=== PATIENT | male | born 1975 | race African-American/Black ===

== ENCOUNTER 2022-04-11 15:05 | Outpatient (REF) | payer MEDICAID, SELFPAY ==
[2022-04-11 15:21] LABS: MANUAL DIFF FLAG NO
[2022-04-11 15:40] LABS: Basophils Percent Auto 0.5 % (0-2); Eosinophils Absolute Auto 0.2 X10*3/uL (0.0-0.4); Eosinophils Percent Auto 2.4 % (0-4); Hematocrit 41.2 % (42.0-52.0); Hemoglobin 13.5 g/dl (14.0-18.0); Imm Gran Abs Auto 0.03 X10*3/uL (0.00-0.03); Imm Gran Pct Auto 0.4 % (0.0-0.4); Lymphocytes Absolute Auto 2.3 X10*3/uL (1.2-4.9); Lymphocytes Percent Auto 30.9 % (20-40); Mean Corpuscular HGB Conc 32.8 g/dl (31.0-36.0); Mean Corpuscular Hemoglobin 30.1 pg (27.0-33.0); Mean Corpuscular Volume 91.8 fL (80.0-98.0); Mean Platelet Volume 9.7 fL (9.4-12.4); Monocytes Absolute Auto 0.8 X10*3/uL (0.1-1.2); Monocytes Percent Auto 10.8 % (2-11); Neutrophils Absolute Auto 4.1 x10*3/uL (2.0-8.3); Platelet Count 332 X10*3/uL (160-400); Red Blood Count 4.49 X10*6/uL (4.60-5.80); Red Cell Distribution Width 12.6 % (11.0-16.0); White Blood Count 7.4 X10*3/uL (4.8-10.8)
[2022-04-11 15:52] LABS: Estimated Average Glucose 88 mg/dL; Hemoglobin A1c % 4.7 %
[2022-04-11 16:00] LABS: Alanine Aminotransferase 26 U/L (0-40); Albumin Level 4.4 g/dL (3.5-5.0); Alkaline Phosphatase 52 U/L (39-117); Anion Gap 12 (12-20); Aspartate Amino Transferase 22 U/L (5-37); Bilirubin Total 0.7 mg/dL (0.0-1.0); Blood Urea Nitrogen 10 mg/dL (9-16); Calcium 9.4 mg/dL (8.4-10.2); Carbon Dioxide 26 mmol/L (22-29); Chloride 105 mmol/L (96-108); Estimated Glomerular Filt Rate > 60; Glucose Random 76 mg/dL (60-115); Sodium 139 mmol/L (135-145); Total Protein 7.3 g/dL (6.5-8.0)
== END 2022-04-11 15:06 | disposition home or self-care (01) ==
LOC: HO.LAB 15:05
PROVIDERS: PCP Nurse Practitioner Family; Visit Provider Surgery
DX: R10.9 Unspecified abdominal pain (principal); K43.2 Incisional hernia without obstruction or gangrene
CPT/HCPCS: 36415; 80053; 83036; 85025; 99202

== ENCOUNTER 2022-05-10 06:50 | Outpatient (REF) | payer MEDICAID, SELFPAY ==
--- NOTE | ~2022-05-10 | CT_ITS ---
EXAMINATION: CT ABDOMEN AND PELVIS WITHOUT CONTRAST CLINICAL INFORMATION: K43.2 - Incisional hernia without obstruction or gangrene COMPARISON: None TECHNIQUE: Multidetector volumetric imaging was performed from the superior aspect of the liver through the pubic symphysis. No oral or intravenous contrast. Sagittal and coronal reformatted images were obtained on the technologist's workstation. This CT examination was performed using dose optimization techniques as appropriate, variously including the following: *Automated exposure control *Adjustment of mA and/or kV according to patient size (this includes techniques or standardized protocols for targeted exams where dose is matched to indication/reason for exam; i.e. extremities or head) *Use of iterative reconstruction technique DLP: 448 mGy-cm FINDINGS: LUNG BASES: Minor disc atelectasis left anterior lateral base. No airspace consolidation or effusion. LIVER, GALLBLADDER, AND BILIARY TREE: The liver is normal in size, shape, and attenuation. No focal hepatic lesion or biliary ductal dilatation is present. There is small metallic focus posterior inferior left hepatic lobe, under 5 mm. The gallbladder is unremarkable with no evidence of radiopaque gallstones, gallbladder wall thickening, or obvious pericholecystic inflammatory changes. PANCREAS: Unremarkable. SPLEEN: Unremarkable. ADRENAL GLANDS: Unremarkable. KIDNEYS AND URETERS: The kidneys are normal in size, shape, and attenuation. No hydronephrosis, hydroureter, or calculi seen. No perinephric stranding. Incidental 1.5 cm cyst interpolar right kidney, 8 HU attenuation. No additional imaging follow-up recommended. BLADDER: Unremarkable. GASTROINTESTINAL TRACT: No bowel obstruction or focal inflammatory changes in the mesentery. Normal appendix. No ascites or fluid collection. ABDOMINAL WALL: Small fat-containing umbilical hernia, abdominal wall defect 0.9 cm and hernia sac approximately 3 cm. Small fat-containing right inguinal hernia 1.5 cm diameter by 2.8 cm in length. LYMPH NODES: No lymphadenopathy. VASCULAR: Unremarkable on noncontrast exam. PELVIC VISCERA: Unremarkable. OSSEOUS STRUCTURES: Unremarkable. CT/CT abdomen pelvis wo IV con IMPRESSION: -Small fat-containing umbilical hernia, 3 cm. -Small fat-containing right inguinal hernia 1.5 cm diameter x 2.8 cm length.
== END 2022-05-10 06:51 | disposition home or self-care (01) ==
LOC: HO.CT 06:50
PROVIDERS: PCP Nurse Practitioner Family; Visit Provider Surgery
DX: K43.2 Incisional hernia without obstruction or gangrene (principal)
CPT/HCPCS: 74176

== ENCOUNTER → 2022-05-16 15:08 | Outpatient (BNVA) | payer MEDICAID, SELFPAY | PROVIDERS: PCP Nurse Practitioner Family; Visit Provider Surgery | DX: K43.2 Incisional hernia without obstruction or gangrene (principal); K42.9 Umbilical hernia without obstruction or gangrene; D64.9 Anemia, unspecified | CPT/HCPCS: 99212 ==

== ENCOUNTER 2022-06-07 07:21 | Day surgery (SDC) | payer MEDICAID, SELFPAY ==
[2022-06-01 13:17] VITALS: BMI 29.6
--- NOTE | 2022-06-06 09:45 | HO.ANESPROP2 ---
Documented by User: Capri Barba NP 06/06/22 09:46 HPI - Anesthesia Eval Consult details Narrative: 46yo M for Open Hernia Repair Incisional, possible mesh,possible umbilectomy PMFSH Active Problems Active Problems: All Active Problems (Updated 06/01/22 @ 13:15 by Amy Cade RN) Incisional hernia (Acute) Umbilical hernia (Acute) Anemia (Acute) Past Medical History Medical History Mild anemia Surgical History Surgical History Hx of abdominal surgery Social History Social History (Updated 06/01/22 @ 13:11 by Amy Cade RN) Alcohol intake: never Patient Tobacco Use Status: Never used Tobacco Use of substances other than those prescribed or required for medical reasons: Yes Substance Use Type: Marijuana Substance Use Frequency: Occasionally Are you DNR?: No Advance Directives: No Advance Directives Information Provided: Yes Nutrition Risks: No Nutritional Risk Meds Allergies Allergy/AdvReac Type Severity Reaction Status Date / Time No Known Allergies Allergy Verified 06/07/22 07:24 Home Medications Medication Instructions Recorded Confirmed Last Taken Type No Known Home Meds 04/11/22 06/01/22 Unknown History Exam Exam Date and Time: June 06, 2022 0945 Height,Weight and Vital Signs: Height 5 ft 7 in Weight 85.786 kg Pertinent Lab Results Pertinent Lab Results: Laboratory Tests 04/11/22 04/11/22 15:18 15:18 WBC 7.4 Hgb 13.5 L Hct 41.2 L Plt Count 332 Sodium 139 Potassium 4.0 Chloride 105 Carbon Dioxide 26 BUN 10 Creatinine 1.26 Assessment and Plan Assessment Anesthesia Assessment: Chart Reviewed Documented by User: Favian Engel MD 06/07/22 08:26 PMFSH Past Medical History Medical History Mild anemia Family History Family history of problems with anesthesia: No Surgical History Surgical History Hx of abdominal surgery History of Problems with Anesthesia: No Social History Social History (Updated 06/01/22 @ 13:11 by Amy Cade RN) Alcohol intake: never Patient Tobacco Use Status: Never used Tobacco Use of substances other than those prescribed or required for medical reasons: Yes Substance Use Type: Marijuana Substance Use Frequency: Occasionally Are you DNR?: No Advance Directives: No Advance Directives Information Provided: Yes Nutrition Risks: No Nutritional Risk Meds Allergies Allergy/AdvReac Type Severity Reaction Status Date / Time No Known Allergies Allergy Verified 06/07/22 07:24 Home Medications Medication Instructions Recorded Confirmed Last Taken Type No Known Home Meds 04/11/22 06/01/22 Unknown History Exam Airway Mallampati Class: I TM Dist: >3cm Neck ROM: Full Loose/Missing/Broken Teeth: No Heart: ok Lungs: ok Assessment and Plan Final Anesthetic Review Family History of Problems with Anesthesia: No History of Problems with Anesthesia: No NPO: Yes ASA Class: I Final Preanesthetic Review: No Changes in Pt Med Stat, Meds/Allgs Chart Reviewed, Consent Obtained/Reviewed and Anes Risks/Benef Reviewed Patient Risk: Low Procedure Risk: Low Anesthetic Plan Anesthetic Plan: GA and Agree w/ Assess. and Plan Disposition: Standard PACU
[2022-06-07] VITALS (9 sets, daily range): BP systolic 125–152; BP diastolic 71–84; PULSE 5–69; RESP 14–20; TEMP 36.1–36.7; O2SAT 98–100
--- NOTE | 2022-06-07 07:23 | PC.NURSE ---
patient arrived forty five minutes late
[2022-06-07] MEDS: Lactated Ringers 1,000 ML 100 ML IVCONT (07:44)
--- NOTE | 2022-06-07 08:10 | MHC.SHP ---
Pre-Procedural Eval Section A Date of Service: 06/07/22 The patient is an INPATIENT: No The History & Physical has been completed within 30 days and I have reviewed it.: Yes Section B Chief Complaint: incisional hernia Allergies: Allergies Allergy/AdvReac Type Severity Reaction Status Date / Time No Known Allergies Allergy Verified 06/07/22 07:24 Plan I have reviewed the history and physical and performed a pertinent physical examination on my patient. No changes have occurred unless specified.
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
--- NOTE | 2022-06-07 08:11 | PC.NURSE ---
IV attempt by author, harvinder VEGA. insertion by russell hawthorne rn
--- NOTE | 2022-06-07 08:14 | PC.NURSE ---
Dr. Engel aware that patient stated that he ate a cupcake and drank juice at approximately 0100
[2022-06-07] MEDS: ondansetron HCL 4 MG/2 ML VIAL IVPUSH (09:40)
[2022-06-07] MEDS: fentaNYL citrate/PF 100 MCG/2 ML VIAL 50 MCG IVPUSH ×2 (09:40→09:53)
[2022-06-07] MEDS: oxyCODONE HCl Immed Release 5 MG TABLET 10 MG PO (09:56)
== END 2022-06-07 11:13 | disposition home or self-care (01) ==
PROVIDERS: PCP Nurse Practitioner Family; Visit Provider Surgery
PROC: (CPT 49587; principal; 2022-06-07 08:20)
DX: K42.9 Umbilical hernia without obstruction or gangrene (principal); D64.9 Anemia, unspecified; F12.90 Cannabis use, unspecified, uncomplicated; Z87.828 Personal history of other (healed) physical injury and trauma; Z98.890 Other specified postprocedural states
CPT/HCPCS: 49587; 88302; J0690; J1885; J2250; J2405; J2795; J3010